=== PATIENT | female | born 2000 | race Hispanic/Latino ===

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

== ENCOUNTER 2022-03-12 14:30 | Emergency (ER) | payer SELFPAY ==
--- NOTE | 2022-03-12 16:43 | ER ---
Nurse's Notes [facility] Name: Deanna Hernandez Age: 21 yrs Sex: Female : 2000 Arrival Date: 03/12/2022 Time: 14:37 Bed External Waiting Private MD: Diagnosis: Migraine without aura, not intractable Presentation: 03/12 15:09 Chief complaint: Patient states: Migraine x 5 days. Coronavirus screen: Vaccine status: [facility] Patient reports being unvaccinated. At this time, the client does not indicate any symptoms associated with coronavirus-19. Ebola Screen: No symptoms or risks identified at this time. Initial Sepsis Screen: Does the patient meet any 2 criteria? No. Patient's initial sepsis screen is negative. Does the patient have a suspected source of infection? No. Patient's initial sepsis screen is negative. Risk Assessment: Do you want to hurt yourself or someone else? Patient reports no desire to harm self or others. Onset of symptoms was March 07, 2022. 15:09 Method Of Arrival: Ambulatory [facility] 15:09 Acuity: KARAN 4 [facility] Triage Assessment: 15:10 Headache History: The patient has had previous headaches and this one is similar to [facility] previous episodes. General: Appears in no apparent distress. uncomfortable, Behavior is calm, cooperative, appropriate for age. Pain: Complains of pain in TORRES Pain currently is 10 out of 10 on a pain scale. Pain began x 5 days Also complains of no other associated symptoms. Neuro: Level of Consciousness is awake, alert, obeys commands, Oriented to person, place, time, situation. 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 - Social history:: Smoking status: Patient denies any tobacco usage or history of. Patient uses street drugs, marijuana. Assessment: 16:44 Reassessment: Called patient to exam room for the third time. Again, no answer. Unable ss to locate patient. YUMI Menjivar notified. Vital Signs: 15:09 BP 133 / 70; Pulse 109; Resp 15; Temp 99.1; Pulse Ox 99% ; Weight 106.59 kg; Height 5 jl7 ft. 7 in. (170.18 cm); Pain 10/10; 15:09 Body Mass Index 36.81 (106.59 kg, 170.18 cm) jl7 [place] Coma Score: 19:44 Eye Response: spontaneous(4). Verbal Response: oriented(5). Motor Response: obeys kb commands(6). Total: 15. ED Course: 14:37 Patient arrived in ED. as 14:47 Tiara Villa FNP-C is PHCP. kb 14:47 Frank Candelario DO is Attending Physician. kb 15:10 Triage completed. jl7 15:10 Arm band placed on right wrist. jl7 16:49 No provider procedures requiring assistance completed. Patient did not have IV access ss during this emergency room visit. Administered Medications: No medications were administered Medication: 16:44 VIS not applicable for this client. ss Outcome: 16:43 Discharge ordered by MD. kb 16:49 Discharge instructions given to Pt left prior to receiving discharge instructions. ss 16:51 Patient left the ED. ss Signatures: Tiara Villa FNP-C BISCUIT MACHINE OPERATOR-Kamilla Anderson Shelby, RN RN Sugar Cedillo RN RN jl7
--- NOTE | 2022-03-12 16:43 | EDPHYS ---
Physician Documentation [facility] Name: Deanna Hernandez Age: 21 yrs Sex: Female : 2000 Arrival Date: 03/12/2022 Time: 14:37 Bed External Waiting Private MD: ED Physician Frank Candelario HPI: 03/12 19:45 This 21 yrs old Female presents to ER via Ambulatory with complaints of kb Headache. 19:45 The patient complains of pain to the top of head. The patient describes the headache as kb pounding. Onset: The symptoms/episode began/occurred 5 day(s) ago. Associated signs and symptoms: Pertinent positives: Photophobia. Severity of symptoms: At its worst the pain was moderate, in the emergency department the pain is unchanged. Headache History: The patient has had previous headaches and this one is similar to previous episodes. The symptoms are alleviated by nothing. the symptoms are aggravated by nothing. The patient has experienced similar episodes in the past. The patient has not recently seen a physician. 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 - Social history:: Smoking status: Patient denies any tobacco usage or history of. Patient uses street drugs, marijuana. ROS: 19:44 Constitutional: Negative for fever, chills, and weight loss. kb 19:44 Neuro: Positive for headache. 19:44 All other systems are negative. Exam: 19:44 Constitutional: This is a well developed, well nourished patient who is awake, alert, kb and in no acute distress. Head/Face: Normocephalic, atraumatic. Eyes: Pupils equal round and reactive to light, extra-ocular motions intact. Lids and lashes normal. Conjunctiva and sclera are non-icteric and not injected. Cornea within normal limits. Periorbital areas with no swelling, redness, or edema. ENT: Moist Mucous membranes Cardiovascular: Regular rate and rhythm with a normal S1 and S2. No gallops, murmurs, or rubs. No pulse deficits. Respiratory: Respirations even and unlabored. No increased work of breathing. Talking in full sentences Abdomen/GI: Soft, non-tender. No distention Skin: Warm, dry with normal turgor. Normal color. MS/ Extremity: Pulses equal, no cyanosis. Neurovascular intact. Full, normal range of motion. Neuro: Awake and alert, GCS 15, oriented to person, place, time, and situation. Moves all extremities. Normal gait. Vital Signs: 15:09 BP 133 / 70; Pulse 109; Resp 15; Temp 99.1; Pulse Ox 99% ; Weight 106.59 kg; Height 5 jl7 ft. 7 in. (170.18 cm); Pain 10/10; 15:09 Body Mass Index 36.81 (106.59 kg, 170.18 cm) jl7 [place] Coma Score: 19:44 Eye Response: spontaneous(4). Verbal Response: oriented(5). Motor Response: obeys kb commands(6). Total: 15. MDM: 15:10 Patient medically screened. kb 19:43 Data reviewed: vital signs, nurses notes. kb 19:44 Differential diagnosis: migraine, tension headache. ED course: Pt elected to leave prior to medication administration. 03/12 15:11 Order name: IV Start kb Administered Medications: No medications were administered Disposition Summary: 03/12/22 16:43 Discharge Ordered Location: Home Condition: Stable kb Diagnosis - Migraine without aura, not intractable kb Followup: kb - With: Emergency Department - When: As needed - Reason: Worsening of condition Followup: kb - With: Private Physician - When: 2 - 3 days - Reason: Recheck today's complaints, Continuance of care, Re-evaluation by your physician Discharge Instructions: - Discharge Summary Sheet kb - Migraine Headache, [id number] kb Forms: - Medication Reconciliation Form kb - Thank You Letter kb - Antibiotic Education kb - Prescription Opioid Use kb Signatures: Tiara Villa FNP-C FNP-Sugar Al, RN RN jl7
[2022-03-12 19:24] VITALS: BP 133/70; TEMP 99.1; O2SAT 99
== END 2022-03-12 16:51 | disposition home or self-care (01) ==
LOC: ER 14:30
DX: G43.009 Migraine without aura, not intractable, without status migrainosus (principal)
CPT/HCPCS: 99281